=== PATIENT | female | born 1935 | race Caucasian/White ===

== ENCOUNTER 2018-08-13 09:05 | Outpatient (CLI) | payer MEDICARE, SELFPAY ==
[2018-08-13] VITALS (8 sets, daily range): BP systolic 135–181; BP diastolic 69–88; PULSE 57–64; RESP 16–18; TEMP 36.6; O2SAT 100
--- NOTE | 2018-08-13 10:23 | DI.RAD.S_ITS ---
PROCEDURE: PAIN L/S FACET INJ/BLK 1ST ABBEY COMPARISON: None. INDICATIONS: SPONDYLOSIS FINDINGS: Right-sided L4-5 and L5-S1 needle tip localization is documented, and thereafter additional left-sided same level localization is performed.. IMPRESSION: Successful right L4-5 and right L5-S1 needle tip localization for facet joint injections initially, and thereafter left-sided same level needle tip localizations are documented. Dictated by: Josafat Coughlin M.D. on 08/13/2018 at 13:01 Approved by: Josafat Coughlin M.D. on 08/13/2018 at 13:02
[2018-08-13] MEDS: MIDAZOLAM 5 MG/5 ML VIAL IV (10:31)
[2018-08-13] MEDS: IOPAMIDOL 15 ML VIAL 3 ML INJ (10:38)
[2018-08-13] MEDS: BETAMETHASONE 30 MG/5 ML MDV 12 MG INJ (10:38)
[2018-08-13] MEDS: BUPIVACAINE 0.5% (PF) VIAL 5 ML INJ (10:38)
[2018-08-13] MEDS: LIDOCAINE 1% 20 ML INJ 10 ML INJ (10:38)
--- NOTE | 2018-08-13 10:43 | PC.NURSE ---
assisting pt on table, transporting to post op area in stable condition
--- NOTE | 2018-08-13 10:53 | PC.NURSE ---
received pt from Aidee BLANCHARD post procedure, pt stable alert a little drowsy, able to get her needs met. pt able to drink water without problems. resumed care.
--- NOTE | 2018-08-13 10:54 | P.PCN_ITS ---
Procedures Date/Time Date of procedure: 08/13/18 Time of procedure: 10:53 General Procedure description: PREOP DIAGNOSIS 1. FACET ARTHROPATHY 2. AXIAL LBP 3. MULTILEVEL DDD POST OP DIAGNOSIS 1. FACET ARTHROPATHY 2. AXIAL LBP 3. MULTILEVEL DDD PROCEDURES 1. FLUORSCOPICALLY GUIDED CONTRAST CONTROLLED FACET JOINT INJECTIONS BILATERAL L4/5, L5/S1 PHYSICIAN: Max Duncan, DO INDICATIONS Chapis is referred by Dr. Liz for treatment of Axial LBP FINDINGS Multilevel Facet Arthropathy with Clinically significant axial LBP DESCRIPTION OF PROCEDURE Fluoroscopically guided, contrast-controlled bilateral L4/5, L5/S1 facet joint injections. Following denial of allergy and review of potential side effects and complications, including, but not necessarily limited to, infection, allergic reaction, local tissue breakdown, stroke, temporary or permanent nerve injury, paralysis, and possible , the patient indicated that the patient understood and agreed to proceed. An informed consent document was signed by the patient, witnessed by a nurse, and placed in the patient's chart. Additionally, other treatment options including medications, modalities, and physical therapy were reviewed with the patient. After review of previous anaesthesic history and IV conscious sedation the patient was deemed safe to proceed with todays procedure with IV conscious sedation as ASA class II designation. Safety time-out was performed to confirm patient ID, procedure to be performed and site of procedure. IV sedation was accomplished with a combination of 2mg was administered by the RN after DO order , titrated to patient comfort during the course of the procedure while the patient remained responsive to all verbal commands In the prone position, following sterile prep and drape of the lumbar region, the posterior aspect of the L4/5, L5/S1 facet joints were identified fluoroscopically. The skin was anesthetized via a 25-gauge 1.5-inch needle with 1% lidocaine solution into the corresponding facet joints. At this point, a 22-gauge 3.5-inch spinal needle was atraumatically introduced and advanced under fluoroscopic guidance into the corresponding facet joints. Following negative aspiration, injections of approximately 0.2-cc of Isovue 200 confirmed interarticular placement without vascular uptake. The identical procedure was then performed at the L4/5, L5/S1 facet joints on the left. Radiological data, including multiple fluoroscopic views of the lumbosacral spine, reveal a spinal needle at the L4/5, L5/S1 facet joints bilaterally. Subsequent views show flow of contrast material both superiorly and inferiorly within the joint space without vascular or intrathecal uptake. At this point, a total of 0.5 cc including a mixture of 0.25cc Marcaine and 0.25cc betamethasone was injected without complication into each of the corresponding facet joints. The patient tolerated the procedure well without signs or symptoms of complications prior to transfer to the recovery area continued monitoring without incident. The patient was then transferred to the recovery area where they were observed for an appropriate period of time after the injection. The patient reported a VAS score of 7 prior to the procedure and a post- procedure VAS of 0. Total Fluoroscopy Time: 20.3 seconds Total Conscious Sedation Time: 24min POST OP INSTRUCTIONS The patient was provided a Pain Log to continue to record their response to the target-specific procedure prior to follow-up visit with their referring physician. Additionally, specific post-injection care instructions and a contact number to our office were provided if concerns arise regarding possible complications associated with the procedure are suspected. Max Duncan DO Complications: none
== END 2018-08-13 11:21 ==
LOC: RAD 09:08
PROVIDERS: PCP Family Medicine; Visit Provider Physical Medicine & Rehabilitation
DX: M47.817 Spondylosis without myelopathy or radiculopathy, lumbosacral region (principal); M51.36 Other intervertebral disc degeneration, lumbar region; M51.37 Other intervertebral disc degeneration, lumbosacral region; M54.5 Low back pain
CPT/HCPCS: 64493; 64494; 99152; J0702; J2250

== ENCOUNTER 2019-02-11 10:04 | Outpatient (CLI) | payer MEDICARE, OTHER, SELFPAY ==
[2019-02-11] VITALS (8 sets, daily range): BP systolic 105–163; BP diastolic 60–93; PULSE 59–65; RESP 16–21; TEMP 36.1; O2SAT 95–100
--- NOTE | 2019-02-11 10:05 | DI.RAD.S_ITS ---
PROCEDURE: PAIN L/S FACET INJ/BLK 1ST ABBEY COMPARISON: [facility], XA, PAIN L/S FACET INJ/BLK 1ST ABBEY, 08/13/2018, 10:37. INDICATIONS: RADICULOPATHY FINDINGS: Bilateral L4, L5, S1 medial branch block needle tip localization is is identified. IMPRESSION: Successful needle tip localization was for bilateral medial branch block procedures involving the L4, L5 and S1 nerve roots. Dictated by: Josafat Coughlin M.D. on 02/11/2019 at 12:02 Approved by: Josafat Coughlin M.D. on 02/11/2019 at 12:03
[2019-02-11] MEDS: MIDAZOLAM 5 MG/5 ML VIAL IV (11:00)
[2019-02-11] MEDS: IOPAMIDOL 15 ML VIAL 3 ML INJ (11:06)
[2019-02-11] MEDS: BETAMETHASONE 30 MG/5 ML MDV 12 MG INJ (11:07)
[2019-02-11] MEDS: BUPIVACAINE 0.5% (PF) VIAL 2 ML INJ (11:07)
[2019-02-11] MEDS: LIDOCAINE 1% 20 ML INJ 10 ML INJ (11:07)
--- NOTE | 2019-02-11 11:17 | PC.NURSE ---
Pt tolerated procedure well. Able to get up off table with minimal assist. Transferred pt via wheelchair to pre procedure room for continued monitoring with Aidee BLANCHARD.
--- NOTE | 2019-02-11 11:23 | P.PCN_ITS ---
Procedures Date/Time Date of procedure: 02/11/19 Time of procedure: 11:22 General Procedure description: Procedure description: 1. FACET ARTHROPATHY PROCEDURES: 1. BILATERAL- L4, L5 and S1 MB BLOCKS PHYSICIAN: DO JERRY Lima Chapis is referred by for treatment of Bilateral Axial LBP. DESCRIPTION OF PROCEDURE Fluoroscopically guided, contrast-controlled bilateral L4, L5 and S1 medial branch blocks with 0.5cc of 0.5% Marcaine. Following denial of allergy and review of potential side effects and complications, including, but not necessarily limited to, infection, allergic reaction, local tissue breakdown, nerve injury, paralysis, stroke and possible , the patient indicated that the patient understood and agreed to proceed. An informed consent document was signed by the patient, witnessed by a nurse, and placed in the patient's chart. After review of previous anaesthesic history and IV conscious sedation the patient was deemed safe to proceed with todays procedure with IV conscious s edation as ASA class II designation. Safety time-out was performed to confirm patient ID, procedure to be performed and site of procedure. IV sedation was accomplished with a combination of 3mg of Versed was administered by the RN after DO order, titrated to patient comfort during the course of the procedure while the patient remained responsive to all verbal commands In the prone position, following sterile prep and drape of the lumbar region, the right L4, L5 and S1 anatomical location of the medial branch of the dorsal ramus was identified fluoroscopically. Subsequently an anesthetic skin wheal using 1% lidocaine solution was initiated at each of the anatomical spots. Subsequently then a 22-gauge 3.5-inch spinal needle was atraumatically introduced and advanced under fluoroscopic guidance at each of the corresponding sites at the right L4, L5 and S1 MB. After negative aspiration, 0.2 cc of Isovue 200 was injected, confirming placement without vascular or intrathecal uptake. Subsequently then 0.5 cc of 0.5% Marcaine solution was injected at each of the corresponding sites at the right L4, L5 and S1 medial branch locations. The identical procedure was replicated on the left. The patient tolerated the procedure well without signs or symptoms of complications prior to transfer to the recovery area continued monitoring without incident. Post-procedure, the patient was monitored initiating provocative activities to measure the amount of relief from block of the facetogenic pain. The patient reported a VAS of 7 prior to the procedure and a post-procedure VAS of 1. It has been a pleasure to assist in the diagnostic and therapeutic care of your patient. Total Fluoroscopy Time: 24.8 seconds Total Conscious Sedation Time: 24min POST OP INSTRUCTIONS The patient was provided with a Pain Log to complete over the next several hours and subsequent days prior to the patient's follow up with the ordering physician. If the patient has watch repair technician relief to the solution applied, then they may be a candidate for medial branch rhizotomy. The patient is aware, was provided, once again, with a Pain Log and will follow up with the referring physician for review and clinical correlation Max Duncan DO Complications: none
--- NOTE | 2019-02-11 11:26 | PC.NURSE ---
ACCEPTED CARE OF PT IN STABLE CONDITION UPON ARRIVAL TO POST PROC AREA
== END 2019-02-11 11:59 | disposition home or self-care (01) ==
LOC: RAD 10:05
PROVIDERS: PCP Family Medicine; Visit Provider Physical Medicine & Rehabilitation
DX: M47.816 Spondylosis without myelopathy or radiculopathy, lumbar region (principal); M47.817 Spondylosis without myelopathy or radiculopathy, lumbosacral region
CPT/HCPCS: 64493; 64494; 99152; J0702; J2250; J3010

== ENCOUNTER → 2019-03-28 13:32 | Outpatient (CLI) | payer MEDICARE, OTHER, SELFPAY ==
--- NOTE | 2019-03-28 13:37 | DI.MRI.S_ITS ---
PROCEDURE: MR THORACIC SPINE WO CON INDICATIONS: Low back pain TECHNIQUE: Noncontrast sagittal T1 spine echo and T2 fast spin echo, sagittal STIR, axial T1 and T2 fast spin echo through the thoracic spine. COMPARISON: [facility], XA, PAIN L/S FACET INJ/BLK 1ST ABBEY, 08/13/2018, 10:37. [facility], XA, PAIN L/S FACET INJ/BLK 1ST ABBEY, 02/11/2019, 11:09. [facility], RG, MRI T-SPINE W/O CONTRAST, 06/20/2018, 8:40. MR, LUMBAR SPINE W/O CONTRAST, 12/18/2012, 14:44. MR, THORACIC SPINE W/O CONTRAST, 12/18/2012, 14:09. [facility], MR, MR LUMBAR SPINE WO CON, 03/28/2019, 14:29. FINDINGS: Image quality: Excellent. Alignment and Curvature: There is kyphotic bony alignment associated with chronic moderate compression fractures and disc height reduction with a compression fracture is centered at T8-T11 and T12.. Bone Marrow: Marrow is of normal overall signal. No acute vertebral body compression fractures seen along the thoracic spine but there is a mild degree of degenerative disc disease induced edema involving the anterior adjacent endplates at T8-T9 and T9-T10. Note also is made of a definite acute or subacute compression fracture at L2 better visualized on the dedicated lumbosacral spine study from today. Spinal Cord: Visualized spinal cord is normal in size and signal. Paraspinous Soft Tissues: No paravertebral masses. Miscellaneous: On axial images, central canal and foramina appear widely patent at all scanned levels. IMPRESSION: Chronic degenerative disc disease is moderate in severity along the thoracic spine is seen along the middle and lower thirds of the thoracic spine. Old compression fractures are moderate in severity at T11 and T12, and the T12 compression fracture was present as an acute or subacute abnormality 12/18/12. Through the visualized thoracic spine no area disc herniation is found and no significant spinal or foraminal stenosis is seen. Dictated by: Josafat Coughlin M.D. on 03/30/2019 at 8:31 Approved by: Josafat Coughlin M.D. on 03/30/2019 at 8:53
--- NOTE | 2019-03-28 13:37 | DI.MRI.S_ITS ---
PROCEDURE: MR LUMBAR SPINE WO CON INDICATIONS: Low back pain TECHNIQUE: Noncontrast sagittal T1 spin echo and T2 fast echo, sagittal STIR, axial T1 and T2 fast spin echo through the lumbar spine. In cases with scoliosis, additional coronal T2 fast spin echo may be performed. COMPARISON: [facility], LUMBAR SPINE W/O CONTRAST, 12/18/2012, 14:44. FINDINGS: Image quality: Excellent. Alignment and Curvature: Trace retrolisthesis of L1 on L2, L2 on L3, L3 on L4 and trace anterolisthesis of L4 on L5 are noted. Bone Marrow: Marrow is of normal overall signal. It is noted that there is increased STIR signal within the L3 vertebral body appearing to correspond to the superior endplate compression deformity measuring approximately 44%. T12 compression deformity is unchanged. Old T12 and L1 compression deformities are noted with vertebroplasty/kyphoplasty changes at T12. They measure approximately 37% and 48% respectively. Spinal Cord: Conus medullaris terminates at the L2 level. Visualized cord demonstrates normal signal and size. Paraspinous Soft Tissues: No paravertebral masses. Discs: Overall moderate desiccation is present throughout the lumbar spine noting severe desiccation at L5-S1. L1-L2: Minimal disc bulge without spinal stenosis or foraminal narrowing. L2-L3: Minimal disc bulge without spinal stenosis. Mild bilateral foraminal narrowing with facet and ligamentum flavum hypertrophy. L3-L4: Mild disc bulge without spinal stenosis. Moderate right and mild to moderate left foraminal narrowing with facet and ligamentum flavum hypertrophy. L4-L5: Mild disc bulge including a right foraminal component. There is mild compromise of the right lateral recess. No foraminal narrowing. Facet and ligamentum flavum hypertrophy are present. L5-S1: Mild disc bulge including extension into the right foramina. No spinal stenosis. Severe right and moderate left foraminal narrowing with slight appearance of nerve root flattening on the left. IMPRESSION: 1. Subacute superior endplate compression deformity of L3 as above. 2. Multilevel disc bulges. 3. Multilevel foraminal narrowing most severe at L5-S1 secondary to facet/ligamentum flavum hypertrophy. Dictated by: Miley Roblero M.D. on 03/30/2019 at 11:32 Approved by: Miley Roblero M.D. on 03/30/2019 at 12:11
== END ==
PROVIDERS: PCP Family Medicine; Visit Provider Physical Medicine & Rehabilitation
DX: M54.5 Low back pain (principal); M51.34 Other intervertebral disc degeneration, thoracic region; M48.56XA Collapsed vertebra, not elsewhere classified, lumbar region, initial encounter for fracture; M48.54XS Collapsed vertebra, not elsewhere classified, thoracic region, sequela of fracture; M51.26 Other intervertebral disc displacement, lumbar region; M51.27 Other intervertebral disc displacement, lumbosacral region; M48.07 Spinal stenosis, lumbosacral region
CPT/HCPCS: 72146; 72148

== ENCOUNTER 2019-04-09 10:11 | Day surgery (SDC) | payer MEDICARE, OTHER, SELFPAY ==
[2019-04-07 09:32] VITALS: BMI 23.7
--- NOTE | 2019-04-09 | DI.RAD.S_ITS ---
PROCEDURE: XR LUMBAR SPINE 2-3V INDICATIONS: Vertebroplasty FINDINGS: 2 limited intraoperative fluoroscopically stored images of the lumbar spine were obtained for intraoperative hardware localization purposes. These images are not meant for diagnostic purposes. Intraoperative findings related to a lumbar vertebroplasty procedure are present. IMPRESSION: Intraoperative images obtained during the patient's vertebroplasty. Dictated by: Rao El M.D. on 04/09/2019 at 13:03 Approved by: Rao El M.D. on 04/09/2019 at 13:07
--- NOTE | 2019-04-09 | PATH_ITS ---
[facility] Accession Number: [id number] . 01 Material submitted: . vertebral column - VERTEBRA - L3 BIOPSY . 02 Diagnosis: Tissue From Vertebrae, L3: Fragments of bone and fibrovascular tissue. Negative for evidence of neoplasm. V/04/10/2019 . 02 Electronically signed: . Pavel Coleman MD, Pathologist NPI- [id number] . 01 Gross description: . VERTEBRA - L3 BIOPSY: 1 smooth bone fragment measuring from 0.3 x 0.2 x 0.2 cm. The specimen is totally submitted in 1 cassette after decalcification. /DMC /DMC . 02 Pathologist provided ICD-10: S32.030G . 02 CPT . 648552, 604900 Performed at: 01 [facility] [address] [id number] MD Yossi Romeo MD Phone: [phone] Performed at: 02 [facility] [address] [place], [place] [id number] MD Clare Camp MD Phone: [phone]
[2019-04-09 10:29] VITALS: BP 167/76; PULSE 83; RESP 15; TEMP 36.2; O2SAT 97; BMI 23.7
[2019-04-09] MEDS: LACTATED RINGERS 1,000 ML 42 ML IV (10:54)
--- NOTE | 2019-04-09 10:58 | PM.PREOP ---
Pre-operative Note Interval Note History & Physical reviewed/Exam performed by Physician: Yes Changes to H&P: No
[2019-04-09] MEDS: CEFAZOLIN 1 GM/50 ML FROZ.PIGGY IV (11:46)
--- NOTE | 2019-04-09 11:59 | SUR.OPER ---
Prone on spine table, head in foam head support, padded chest and pelvic supports, gel pad at knees, lower legs supported by pillows; nipples, genitalia and toes free of pressure, arms secured on foam padded arm boards at <90 degrees abduction. Tape over blanket at thigh secured to table.
[2019-04-09] MEDS: BUPIVACAINE 0.25% W/ EPI 30 ML VIAL 60 ML INJ (12:05)
[2019-04-09 12:13] VITALS: BP 123/73; PULSE 93; RESP 16; TEMP 36.9; O2SAT 99
--- NOTE | 2019-04-09 12:21 | P.OP_ITS ---
Operative Date/Time/Diagnoses Date of procedure: 04/09/19 Time of procedure: 12:17 Pre-op diagnosis: L3 compression fracture Back pain Osteoporosis Procedure & Clinicians Procedure: L3 kyphoplasty Same procedure as scheduled: Yes Indications: [age] year old female with intractable pain from L3 compression fracture. They had failed conservative management and requested operative intervention. Risks and benefits of surgery were discussed and appropriate consents were obtained. Surgeon: Jaspreet Swartz Click Yes if Unassisted: Yes Anesthesia Type: Sedation Operative Notes Findings: None Closure Type: primary Specimen(s): other (L3 vertebral biopsy) Estimated Blood Loss (mL): 1 Procedure in detail: The patient was brought to the operating room and rolled over onto the well-padded prone position on the table. She was given sedation. Time-out was performed. We confirmed positioning with two fluoroscopy views. The back was prepped and draped in the standard sterile fashion. Preoperative antibiotics were given. Using fluoroscopic guidance, the planned incision site was infiltrated with Marcaine with epinephrine and injected down to the entry site of the left pedicle of L3. A small stab incision was made and we advanced a Jamshiedi needle down the left pedicle into the vertebral body. A bone biopsy was harvested from this and sent to pathology. We then passed the DFine osteotome and opened it up to create a void inside the vertebral body. We then began injecting the cement. This was done with frequent fluoroscopy imaging. She had good fill across the fracture line. She started to get some extravasation going up to the superior disc space at L2-3 and we stopped injecti ng. She had good fill through the vertebral body at this point. The trocars were removed. Final x-rays were taken. The wound was cleaned. Steri-Strips and sterile dressing were placed. Patient was rolled over, extubated, and brought to recovery without complications. Complications: none Condition: stable Disposition: PACU Plan for aftercare: Outpatient. Activity as tolerated
[2019-04-09 12:31] VITALS: BP 108/65; PULSE 87; RESP 16; TEMP 36.8; O2SAT 95
[2019-04-09 13:03] VITALS: BP 119/71; PULSE 81; RESP 16; TEMP 36.2; O2SAT 16
== END 2019-04-09 13:19 | disposition home or self-care (01) ==
PROVIDERS: PCP Family Medicine; Visit Provider Orthopaedic Surgery
PROC: (CPT 22514; principal; 2019-04-09 11:45)
DX: S32.030A Wedge compression fracture of third lumbar vertebra, initial encounter for closed fracture (principal); M80.08XA Age-related osteoporosis with current pathological fracture, vertebra(e), initial encounter for fracture; M54.9 Dorsalgia, unspecified; I25.10 Atherosclerotic heart disease of native coronary artery without angina pectoris; I11.0 Hypertensive heart disease with heart failure; I50.9 Heart failure, unspecified; Z87.891 Personal history of nicotine dependence
CPT/HCPCS: 22514; 72100; 76000; 88305; 88311; C1776; J2250; J2704; J3010

== ENCOUNTER → 2020-09-12 08:25 | Outpatient (CLI) | payer MEDICARE, OTHER, SELFPAY ==
[2020-09-12 10:09] LABS: COVID19 -Nasal RAPID Negative (Negative)
== END ==
PROVIDERS: PCP Family Medicine; Visit Provider Physician Assistant
DX: Z11.59 Encounter for screening for other viral diseases (principal)
CPT/HCPCS: 87635

== ENCOUNTER → 2020-09-12 08:37 | Outpatient (CLI) | payer MEDICARE, OTHER, SELFPAY ==
[2020-09-12 09:24] LABS: Add Manual Diff / Slide Review NO; Basophils Absolute Auto 0 /uL (0-100); Basophils Percent Auto 0.7 % (0-2); Eosinophils Absolute Auto 100 /uL (0-450); Eosinophils Percent Auto 1.9 % (2-4); Hematocrit 35.7 % (36-46); Lymphocytes Absolute Auto 1300 /uL (1100-4500); Lymphocytes Percent Auto 21.5 % (25-40); Mean Corpuscular HGB Conc 33.6 % (30-36); Mean Corpuscular Hemoglobin 31.6 PG (26-34); Mean Corpuscular Volume 94.2 fL (80-100); Monocytes Absolute Auto 600 /uL (0-900); Monocytes Percent Auto 9.1 % (3-14); Neutrophils Absolute Auto 4100 /uL (1500-7000); Neutrophils Percent Auto 66.8 % (50-75); Platelet Count 249 X10^3/uL (150-400); Red Blood Cell Count 3.79 X10^6/uL (4.0-5.2); Red Cell Distribution Width 15.4 % (11.6-14.8); White Blood Cell Count 6.1 X10^3/uL (4.5-11.0)
[2020-09-12 09:47] LABS: BUN Creatinine Ratio 21.9 (6-22); Blood Urea Nitrogen 25 mg/dL (7-17); Calcium 9.3 mg/dL (8.4-10.2); Carbon Dioxide 28 mmol/L (22-32); Chloride 102 mmol/L (98-107); Estimated Glomerular Filt Rate 45.6 mL/min (>60); Glucose 98 mg/dL (80-110); HEMOLYSIS < 15 (0-50); Sodium 134 mmol/L (137-145)
== END ==
PROVIDERS: PCP Family Medicine; Referring Provider Orthopaedic Surgery; Visit Provider Orthopaedic Surgery
DX: Z11.59 Encounter for screening for other viral diseases (principal); Z01.818 Encounter for other preprocedural examination; Z01.812 Encounter for preprocedural laboratory examination
CPT/HCPCS: 36415; 80048; 85025; 87635; 93005; 93010

== ENCOUNTER 2020-09-13 11:48 | Day surgery (SDC) | payer MEDICARE, OTHER, SELFPAY ==
[2020-09-09 14:46] VITALS: BMI 23.0
[2020-09-13] VITALS (8 sets, daily range): BP systolic 141–168; BP diastolic 63–92; PULSE 16–107; RESP 11–61; TEMP 36.2–36.9; O2SAT 93–100; BMI 23.8
--- NOTE | 2020-09-13 | PATH_ITS ---
[facility] Accession Number: [id number] . 01 Material submitted: . vertebral column - L4 VERTEBRA . 01 Clinical history: . SDC . 01 Diagnosis: Bone, L4 Vertebra, Biopsy: Trabecular bone with focal new bone formation. Fatty marrow with trilinear hematopoietic elements. Negative for malignancy. MRV 09/16/2020 1533 Local . 01 Electronically signed: . Cynthia Skelton MD, Pathologist NPI- [id number] . 01 Gross description: . L4 VERTEBRA: Received in formalin is 1 fragment(s) of barragan, hard bone measuring 0.4 x 0.3 x 0.3 cm submitted entirely in 1 cassette(s) /QBJ 09/14/2020 0745 Local . 01 Pathologist provided ICD-10: S32.040A . 01 CPT . 265566 Performed at: [address] [facility] [address], [place], [place] [id number] MD Yossi Romeo MD Phone: [phone]
--- NOTE | 2020-09-13 | DI.RAD.S_ITS ---
PROCEDURE: XR LUMBAR SPINE 2-3V INDICATIONS: L4 KYPHOPLASTY TECHNIQUE: 8 digital acquisition views views of the lumbar spine were acquired. COMPARISON: [facility], RG, SPINE LUMB 2 OR 3VW, 08/01/2020, 10:05. [facility], MR, MR LUMBAR SPINE WITHOUT CONTRAST, 08/16/2020, 9:00. [facility], CR, XR LUMBAR SPINE 2-3V, 04/09/2019, 12:02. FINDINGS: Bones: Prior T12 and L3 kyphoplasty procedures have been performed, and on the lateral view a portion of the bone cement from the L3 injection extended into the adjacent overlying L2-L3 disc area . The current examination shows L4 kyphoplasty bone-cement having been placed as expected. Soft tissues: Overlying bowel gas pattern is normal. No suspicious soft tissue calcifications. IMPRESSION: Prior L3 kyphoplasty bone-cement stable over time. New L4 kyphoplasty bone-cement as expected. Dictated by: Josafat Coughlin M.D. on 09/13/2020 at 14:44 Approved by: Josafat Coughlin M.D. on 09/13/2020 at 14:53
--- NOTE | 2020-09-13 13:00 | PM.PREOP ---
Pre-operative Note COVID-19 COVID-19 status: Negative Result date/Date tested (Pos, Neg/Pending): 09/12/20 Interval Note History & Physical reviewed/Exam performed by Physician: Yes Changes to H&P: No
[2020-09-13] MEDS: LACTATED RINGERS 1,000 ML 42 ML IV (13:10)
[2020-09-13] MEDS: CEFAZOLIN 2 GM/100 ML FROZ.PIGGY IV (13:32)
--- NOTE | 2020-09-13 13:47 | SUR.OPER ---
Prone on padded OR bed, head in foam head support, gel chest rolls, gel pad under knees, pillow under lower legs, toes free of pressure, arms secured on padded arm boards at <90 degrees abduction. Safety belt at thigh.
[2020-09-13] MEDS: BUPIVACAINE 0.25% W/ EPI (PF) 10 ML VIAL 20 ML INJ (13:55)
--- NOTE | 2020-09-13 14:10 | PM.OP.1 ---
Operative Date/Time/Diagnoses Date of procedure: 09/13/20 Time of procedure: 14:10 Pre-op diagnosis: L4 compression fracture Osteoporosis with current pathologic fracture Back pain Post-op diagnosis: same Procedure & Clinicians Procedure: L4 kyphoplasty Same procedure as scheduled: Yes Indications: [age] year old female with intractable pain from an acute L4 compression fracture. They had failed conservative management and requested operative intervention. Risks and benefits of surgery were discussed and appropriate consents were obtained. Surgeon: Jaspreet Swartz Click Yes if Unassisted: Yes Anesthesia Type: General Operative Notes Findings: None Closure Type: primary Specimen(s): other (L4 vertebral biopsy) Estimated Blood Loss (mL): 2 Procedure in detail: The patient was brought to the operating room and intubated on the table. They were then rolled over to the well-padded prone position. Time-out was performed. We confirmed positioning with two fluoroscopy views. The back was prepped and draped in the standard sterile fashion. Preoperative antibiotics were given. Using fluoroscopic guidance, the planned incision site was infiltrated with Marcaine with epinephrine and injected down to the entry site of the left pedicle of L4. A small stab incision was made and we advanced a Jamshiedi needle down the left pedicle into the vertebral body. A bone biopsy was harvested from this and sent to pathology. We then passed the DFine osteotome and opened it up to create a void inside the vertebral body. We then began injecting the cement. This was done with frequent fluoroscopy imaging. There was no extravasation. Once we had good fill of the L4 vertebral body the injection was stopped and the trocars were removed. Final x-rays were taken. The wound was cleaned. Steri-Strips and sterile dressing were placed. Patient was rolled over, extubated, and brought to recovery without complications. Complications: none Post-operative Condition: stable Disposition: PACU Plan for aftercare: Outpatient. Activity as tolerated.
--- NOTE | 2020-09-13 14:58 | SUR.PHASEII ---
Provided patient with hot tea and crackers. Patient denies any pain at this time. at bedside.
--- NOTE | 2020-09-13 15:35 | SUR.PHASEII ---
discharged patient home with in stable condition with all belongings rerturned. Patient still denies any pain. Reinforced surgical site due to small amount of breakthrough drainage. Instructed patient to call office for follow-up appointment. V/U. RX given for Tramadol.
== END 2020-09-13 14:37 | disposition home or self-care (01) ==
PROVIDERS: PCP Family Medicine; Referring Provider Orthopaedic Surgery; Visit Provider Orthopaedic Surgery
PROC: (CPT 22514; principal; 2020-09-13 13:30)
DX: M80.08XA Age-related osteoporosis with current pathological fracture, vertebra(e), initial encounter for fracture (principal); M54.9 Dorsalgia, unspecified; M54.31 Sciatica, right side; I10 Essential (primary) hypertension; I25.10 Atherosclerotic heart disease of native coronary artery without angina pectoris; I50.9 Heart failure, unspecified
CPT/HCPCS: 22514; 72100; 76000; 82962; C1776; J0690; J1100; J2405; J2704; J3010